=== PATIENT | male | born 1970 | race African-American/Black ===

== ENCOUNTER 2019-11-15 14:35 | Emergency (ER) | payer OTHER ==
[~2019-11-15] VITALS: Ht 175.3 cm; Wt 74.8 kg
[~2019-11-15 14:35] MED LIST: IBUPROFEN; LORTAB 7.5/5001 TA1 PO; PREDNISONE 2.52.5 M1 PO; PROTONIX 20 MG20 M1 PO; PYRIDOSTIGMINE60 M1 PO
[2019-11-15 15:18] LABS: ABSOLUTE NEUTROPHILS 3.5 thou/uL (1.4-8.2); BASOPHILS 0.7 % (0.0-2.0); EOSINOPHILS 1.4 % (0.0-3.0); HEMATOCRIT 39.9 % (42.0-52.0); HEMOGLOBIN 13.3 gm/dL (14.0-18.0); LYMPHOCYTES 38.5 % (24.0-44.0); MCH 30.2 pg (26.0-34.0); MCHC 33.4 g/dL (28.0-37.0); MCV 90.5 fL (80.0-100.0); MONOCYTES 7.4 % (1.0-8.0); PLATELET COUNT 244 thou/uL (150-400); RBC 4.41 mil/uL (4.50-6.00); RDW 13.7 % (10.5-14.5); WBC 6.8 thou/uL (4.0-11.0)
[2019-11-15 15:25] LABS: ANION GAP 10 mmol/L (7-16); BUN 9 mg/dL (7-18); CALCIUM 9.4 mg/dL (8.5-10.1); CHLORIDE 104 mmol/L (98-107); CO2 24 mmol/L (21-32); CREATININE 0.9 mg/dL (0.7-1.3); GLUCOSE 117 mg/dL (74-106); POTASSIUM 3.6 mmol/L (3.5-5.1); SODIUM 138 mmol/L (136-145)
[2019-11-15 15:36] LABS: ALBUMIN 3.9 g/dL (3.4-5.0); LIPASE 186 U/L (73-393); SGOT 26 U/L (15-37); SGPT 55 U/L (30-65); TOTAL BILIRUBIN 0.5 mg/dL (<0.1-1.0); TOTAL PROTEIN 7.2 g/dL (6.4-8.2); TROPONIN-I <0.06 ng/mL (<0.06)
[2019-11-15 16:01] VITALS: BP 134/92
--- NOTE | 2019-11-15 16:01 | EKG ---
[facility] [place] [address] ELECTROCARDIOGRAM REPORT Name: ELENA SALDANA Room #: REG [facility]#: [id number] Admission: 11/15/19 Attend Phys: Discharge: Date of : 66 Report #: [id number] THIS REPORT FOR: cc: Giacomo Jerome Diane C. DO Couchonnal,Kj Rivas MD ~ THIS REPORT FOR: //name// [facility] ED Test Date: 2019-11-15 Test Time: 14:38:36 Pat Name: ELENA SALDANA Department: Room: Gender: Vessel [employer]: [facility] : 1970 Requested By: Michell Calle Order Number: [id number] MD: Kj Oro Measurements Intervals [place] Rate: 94 P: 76 [place]: 144 QRS: 32 QRSD: 82 T: 42 QT: 342 QTc: 428 Interpretive Statements Sinus rhythm Probable left atrial enlargement No previous ECG available for comparison Electronically Signed On 11-15-2019 15:59:39 CDT by Kj Oro [email or web address] <ELECTRONICALLY SIGNED> By: Kj Oro MD 11/15/19 1559 D: 03/1437 143 Kj Oro MD /REINA
[2019-11-15] MEDS ORDERED: MOBIC7.5 MG PO (16:02)
== END 2019-11-15 16:44 | disposition home or self-care (01) ==
LOC: ER 14:35
PROVIDERS: Nurse Practitioner Family
DX: R07.89 Other chest pain (principal); I10 Essential (primary) hypertension; F17.210 Nicotine dependence, cigarettes, uncomplicated; Z79.899 Other long term (current) drug therapy